=== PATIENT | female | born 1965 | race African-American/Black ===

== ENCOUNTER 2019-06-01 15:34 | Inpatient (IN) ==
--- NOTE | 2019-06-01 16:09 | Diag Imaging Result Doc PS360 ---
EXAM: CHEST-2 VIEWS HISTORY: cough with 91%sat TECHNIQUE: Two views COMPARISON: 05/07/2019 FINDINGS: The lungs are well expanded. The heart is not enlarged. The vessels are not distended. There are small basilar infiltrates. No pleural effusions. IMPRESSION: Basilar infiltrates. Electronically signed by Bryon Howard 06/01/2019 4:06 PM
[2019-06-01 16:11] LABS: INFLUENZA A POSITIVE (NEGATIVE); INFLUENZA B NEGATIVE (NEGATIVE)
[2019-06-01] MEDS ORDERED: TAMIFLU PO ONE (16:22)
[2019-06-01 16:45] LABS: BASO# 0.01 X1000 (0.0-0.2); BASO% 0.2 % (0.0-0.8); HEMATOCRIT 41.1 % (37.0-47.0); HEMOGLOBIN 13.5 g/dL (12.0-16.0); IMM GRAN# 0.03 X1000 (0.0-0.04); IMM GRAN% 0.5 % (0.0-0.5); LYMPH# 0.45 X1000 (1.2-3.4); LYMPH% 7.1 % (20.5-51.1); MCH 30.3 PG (27-31); MCHC 32.8 g/dL (33-37); MCV 92.4 FL (81-99); MONO# 0.89 X1000 (0.11-0.59); MONO% 14.1 % (1.7-9.3); MPV 11.4 FL (7.4-10.4); NEUT# 4.92 X1000 (1.4-6.5); NEUT% 78.1 % (42.2-75.2); PLT 162 X1000 (130-400); RBC 4.45 XMIL (4.2-5.4); RDW 13.5 % (11.5-14.5)
--- NOTE | 2019-06-01 16:59 | PROVIDER DOCUMENTATION ---
This chart was entered by Anne-Marie Fragoso Scribe, acting as scribe for Rivera Salinas MD. HPI-General Adult - General Chief Complaint: Flu Symptoms Stated Complaint: COUGH / FEVER Time Seen by Provider: 06/01/19 16:14 Source: patient Allergies/Adverse Reactions: Patient Allergies Allergy/AdvReac Type Severity Reaction Status Date / Time No Known Allergies Allergy Verified 06/01/19 16:08 Home Medications: Home Medication List Medication Instructions Recorded Confirmed Last Taken Type Divalproex E.r. [Depakote ER] 1,750 mg PO QHS #0 tablet 05/11/17 06/01/19 Unknown Rx Docusate Sodium [Colace] 100 mg PO BID capsule 05/11/17 06/01/19 Unknown Rx Melatonin 10 mg PO QHS tablet 05/11/17 06/01/19 Unknown Rx Trazodone [Desyrel] 100 mg PO QHS tablet 05/11/17 06/01/19 Unknown Rx Calcium Carbonate [Caltrate 600] 600 mg PO DAILY #30 tab 08/28/17 06/01/19 Unknown Rx Hydrochlorothiazide 12.5 mg PO DAILY #30 tab 08/28/17 06/01/19 Unknown Rx LISINOpril [Prinivil] 20 mg PO DAILY #30 tab 08/28/17 06/01/19 Unknown Rx Ergocalciferol (Vitamin D2) 50,000 unit PO Q30D #3 cap 09/11/17 06/01/19 Unknown Rx [Vitamin D] Prazosin [Minipress] 6 mg PO QHS capsule 09/11/17 06/01/19 Unknown Rx Sertraline [Zoloft] 150 mg PO QAM tablet 09/11/17 06/01/19 Unknown Rx Albuterol Sulfate Inhaler 2 puff INH DAILY 06/01/19 06/01/19 Unknown History [Ventolin Hfa] Folic Acid 0.4 mg PO DAILY 06/01/19 06/01/19 Unknown History Gentamicin 0.3% Oph Drops 2 drp .SEE ORDER DAILY 06/01/19 06/01/19 Unknown History Oseltamivir [Tamiflu] 75 mg PO BID #10 cap 06/01/19 Unknown Rx Paliperidone Palmitate [Invega 234 mg IM DIRECTED 06/01/19 06/01/19 Unknown History Sustenna] - History of Present Illness -Gen Adult Nature of Presenting Problems: 53 y/o female presents to ED with headache, cough, nasal drainage, body aches, and fever onset 3 days ago. Pt is alert and oriented. Location of Pain/Injury: reports: generalized Pain Radiation: reports: no radiation Quality of Pain: reports: aching Severity: reports: mild Onset/Duration: reports: 3 days ago Timing: reports: still present Context/Activities at Onset: reports: none Modifying Factors: improves with: nothing Associated Symptoms: reports: cough, fever/chills, headaches, sinus congestion/drainage, other (body aches) Similar Symptoms Previously?: No Recently seen or treated by another doctor?: No Review of Systems - Adult - REVIEW OF SYSTEMS - ADULT Constitutional: reports: fever. denies: chills Eyes: reports: no symptoms reported Ears, Nose, Mouth & Throat: reports: sinus problem. denies: epistaxis Cardiovascular: denies: chest pain, palpitations Respiratory: reports: cough. denies: shortness of breath Gastrointestinal: reports: no symptoms reported Genitourinary: reports: no symptoms reported Musculoskeletal: reports: other (body aches). denies: back pain, joint pain Integumentary: reports: no symptoms reported Neurological: reports: headache/migraines. denies: dizziness/vertigo, seizure Psychiatric: reports: no symptoms reported Endocrine: reports: no symptoms reported Hematologic/Lymphatic: reports: no symptoms reported Allergic/Immunologic: reports: no symptoms reported All Other Systems: Reviewed and Negative Past History - Adult - PAST MEDICAL HISTORY-ADULT Review of Records: reports: Old Records Reviewed, Nursing Assessment Review, Medications Reviewed Major Childhood Illnesses: reports: denies history Cardiovascular: reports: HTN Respiratory: reports: denies history Gastrointestinal: reports: denies history Obstetrical/Gynecological: reports: denies history Genitourinary: reports: denies history Musculoskeletal: reports: denies history Neurological: reports: denies history Psychiatric: reports: anxiety, depression, suicide attempt, schizophrenia Endocrine/Immune: reports: denies history Other Conditions: reports: denies history - PRIOR SURGERIES/PROCEDURES Surgical/Procedure History: reports: BTL - IMMUNIZATION STATUS Childhood Immunizations: See Nurse Assessment Flu Vaccine: See Nurse Assessment - FAMILY HISTORY Family History: reviewed, not pertinent - SOCIAL HISTORY Smoking: quit greater than 1 year Substance Use: none/never Alcohol Use Frequency: never Living Situation: family Physical Exam-General - PHYSICAL EXAM-ADULT Initial Vital Signs Reviewed: Yes - CONSTITUTIONAL General Appearance: appears well, alert, no apparent distress - EYES Eyes: PERRL/EOMI, pink conjunctivae - HEAD, EARS, NOSE, MOUTH & THROAT HENMT: normocephalic/atraumatic, moist mucous membranes, normal ENT inspection - NECK Neck: non-tender, full range of motion - RESPIRATORY Respiratory: chest non-tender, lungs clear, normal breath sounds - CARDIOVASCULAR Cardiovascular: normal peripheral pulses, regular rate, rhythm - GASTROINTESTINAL (ABDOMEN) Abdominal Exam: normal bowel sounds, non tender, soft - MUSCULOSKELETAL Back Exam: normal inspection, no CVA tenderness, no vertebral tenderness Extremity: normal range of motion, non-tender - SKIN Integumentary: normal color, warm/dry - NEUROLOGIC Neurologic: grossly normal - PSYCHIATRIC Psych/Mental Status: normal mood/affect, normal thought content, normal thought process, oriented x 3 Progress - PLAN OF CARE/RESULTS Progress/Plan/Lab Results: Vital Signs - 8 hr 06/01/19 15:39 Temperature 99.9 F H Pulse Rate 121 H Respiratory Rate 18 Blood Pressure 138/80 O2 Sat by Pulse Oximetry 91 L Laboratory Results - last 24 hr 06/01/19 06/01/19 15:38 15:38 Influenza A (Rapid) POSITIVE A Influenza B (Rapid) NEGATIVE Group A Strep Rapid NEGATIVE Orders Category Date Time Status CHEST-2 VIEWS [RAD] Stat Exams 06/01/19 15:[address] Stat Lab 06/01/19 15:[address] Stat Lab 06/01/19 15:38 Completed Laboratory Tests 06/01/19 06/01/19 06/01/19 15:38 15:38 16:37 WBC RBC Hgb Hct MCV MCH MCHC RDW Std Deviation Plt Count MPV Immature Gran % (Auto) Neut % (Auto) Lymph % (Auto) Jones % (Auto) Eos % (Auto) Baso % (Auto) Immature Gran # (Auto) Neut # (Auto) Lymph # (Auto) Jones # (Auto) Eos # (Auto) Baso # (Auto) Sodium 138 Potassium 3.3 L Chloride 97 L Carbon Dioxide 28 Anion Gap 14 BUN 10 Creatinine 0.7 Estimated GFR/1.73 m2 > 60 BUN/Creatinine Ratio 14 Glucose 103 Calculated Osmolality 275 Calcium 9.2 Total Bilirubin 0.40 AST 63 H ALT 46 H Alkaline Phosphatase 51 Total Protein 7.5 Albumin 4.2 Globulin 3.0 Albumin/Globulin Ratio 1.0 Influenza A (Rapid) POSITIVE A Influenza B (Rapid) NEGATIVE Group A Strep Rapid NEGATIVE 06/01/19 16:37 WBC 6.30 RBC 4.45 Hgb 13.5 Hct 41.1 MCV 92.4 MCH 30.3 MCHC 32.8 L RDW Std Deviation 13.5 Plt Count 162 MPV 11.4 H Immature Gran % (Auto) 0.5 Neut % (Auto) 78.1 H Lymph % (Auto) 7.1 L Jones % (Auto) 14.1 H Eos % (Auto) 0.0 Baso % (Auto) 0.2 Immature Gran # (Auto) 0.03 Neut # (Auto) 4.92 Lymph # (Auto) 0.45 L Jones # (Auto) 0.89 H Eos # (Auto) 0.00 Baso # (Auto) 0.01 Sodium Potassium Chloride Carbon Dioxide Anion Gap BUN Creatinine Estimated GFR/1.73 m2 BUN/Creatinine Ratio Glucose Calculated Osmolality Calcium Total Bilirubin AST ALT Alkaline Phosphatase Total Protein Albumin Globulin Albumin/Globulin Ratio Influenza A (Rapid) Influenza B (Rapid) Group A Strep Rapid Result Diagrams: 06/01/19 16:37 06/01/19 16:37 - XRAY 1 XRAY Study: Chest Impression: See EMR Report ([facility] - [address] [place] [address], [address], [place] [id number] [place] [address] - [address] [place] [address] Department of Imaging Patient: ANTON VIRK Date: 06/01/19MR#: [id number] : 1965ADM Status: PRE ERAcct#: [id number] Age/Sex: 53/FRoom/Bed: Loc: P.ED Ordering Physician: Rivera Salinas MD Family Physician: TYESHA CRISTOBAL Reason for Procedure: cough with 91%sat ___ Signed EXAM: CHEST-2 VIEWS HISTORY: cough with 91%sat TECHNIQUE: Two views COMPARISON: 05/07/2019 FINDINGS: The lungs are well expanded. The heart is not enlarged. The vessels are not distended. There are small basilar infiltrates. No pleural effusions. IMPRESSION: Basilar infil trates. Electronically signed by Bryon Howard 06/01/2019 4:06 PM 06/01/19 1606 Interpreting Physician: Bryon Howard MD Dictated Date/Time: 06/01/19 1606 cc: Rivera Salinas MD; Tyesha Cristobal) Departure - Departure Date of Disposition Decision: 06/01/19 Time of Disposition Decision: 16:27 DIAGNOSIS: Influenza A Disposition: HOME 01 Certified Medical Emergency: Emergent Condition: Stable Additional Instructions: ED Follow Up Instructions: You have been treated by a care provider in the Emergency Department. These inst ructions are being provided to you so you can have an understanding of how to care for yourself upon discharge. Upon discharge from the Emergency Department, you are responsible for making arrangements for follow-up care by a physician of your choice. Take all prescribed medications as directed. Return to the Emergency Department immediately for any new or worsening symptoms. You may call the Physician Referral phone number at [phone] to obtain a list of Physicians who are taking new patients. Prescriptions: Oseltamivir [Tamiflu] 75 mg PO BID #10 cap Prescription Printed Referrals and Follow-Ups: Tyesha Cristobal CRNP [Primary Care Provider] - Discharge Education: Influenza, Adult, [id number] - Critical Care Note This patient required my direct & personal management of CC.: No Attestation - Physician/ INES Attestation Patient care was provided by Advanced Practice Provider:: No The physician spent face to face time with patient:: Yes Advanced Practice Provider documentation review:: Supervising physician onsite and consulted in the evaluation and care of this patient. The physician did have a face to face encounter with the patient. This chart was documented by the indicated scribe, (Anne-Marie Fragoso, Bekah) and accurately reflects the services I performed and decisions made by me, Rivera Salinas MD, as attested by the provider's signature.
[2019-06-01 17:03] LABS: AGAP 14; ALBUMIN 4.2 g/dL (3.5-5.0); ALKALINE PHOSPHATASE 51 U/L (32-104); BUN 10 mg/dL (8-22); CALCIUM 9.2 mg/dL (8.8-10.2); CHLORIDE 97 mmol/L (98-107); COSMO 275; CREATININE 0.7 mg/dL (0.5-0.9); ESTIMATED GFR > 60; GLUCOSE 103 mg/dL (70-104); GOT 63 U/L (10-30); GPT 46 U/L (10-36); POTASSIUM 3.3 mmol/L (3.5-5.1); SODIUM 138 mmol/L (136-145); TCO2 28 mmol/L (25-35); TOTAL PROTEIN 7.5 g/dL (6.3-8.3)
[2019-06-01 18:16] LABS: BE 5.4 mmoll (-3.0-3.0); BLOOD TYPE ARTERIAL; HCO3-(ACT) 28.5 mmoll (20.0-26.0); METHB 1.4 % (0.0-1.5); O2(CT) 15.6 mL/dL (15.0-23.0); PCO2(98.6) 42 mmHg (35-45); SAMPLE BLOOD; SAO2 80.8 % (95.0-100.0); THB 14.5 g/dL (11.5-17.4); pH(98.6) 7.46 (7.35-7.45)
[2019-06-01 18:18] LABS: ALLEN TEST NO; MODALITY ROOM AIR
[2019-06-01 18:19] LABS: O2HB 76.6 % (95.0-99.0); PO2(98.6) 41 mmHg (60-100)
[2019-06-01] MEDS: DUONEB (A & A) INH SCH ×2 (20:30→23:30)
[2019-06-02] MEDS: DUONEB (A & A) INH SCH ×5 (07:53→23:19)
[2019-06-02 08:12] LABS: INR 0.98; PROTIME 13.5 Seconds (11.0-16.0)
[2019-06-02 08:13] LABS: PTT 33.7 Seconds (22.3-41.8)
[2019-06-02 08:33] LABS: CK INDEX 0.1 (0.0-2.5)
[2019-06-02] MEDS ORDERED: ZOFRAN IV PRN (16:17)
[2019-06-02] MEDS: ROCEPHIN 1 GM in NS 50 ML IV SCH (17:17)
[2019-06-02] MEDS: HYDROCHLOROTHIAZIDE PO SCH (17:18)
[2019-06-02] MEDS: ZOLOFT PO SCH (17:18)
[2019-06-02] MEDS: ZITHROMAX PO SCH (17:18)
[2019-06-02] MEDS: COLACE PO SCH (21:25)
[2019-06-02] MEDS: MELATONIN PO SCH (21:26)
[2019-06-02] MEDS: DESYREL PO SCH (21:26)
[2019-06-02] MEDS: DEPAKOTE ER PO SCH (21:26)
[2019-06-02] MEDS: TAMIFLU PO SCH (21:26)
[2019-06-02] MEDS: MINIPRESS PO SCH (21:26)
--- NOTE | 2019-06-02 21:28 | HISTORY AND PHYSICAL ---
CHIEF COMPLAINT: Cough, fever. HISTORY OF PRESENT ILLNESS: Patient is a 53-year-old female who presented to the hospital with fever, cough, congestion for 3 days, increased headache, nasal congestion, body aches, subsequently diagnosed with the flu and bibasilar pneumonia. ALLERGIES: No known drug allergies. MEDICATIONS: Depakote, Colace, melatonin, Desyrel, lisinopril 20, Zoloft 150, and I believe she currently is on Tamiflu. REVIEW OF SYSTEMS: Difficult to obtain. Patient complains of sinus congestion, cough, fevers, chills, headaches, muscle aches, fatigue. Denies GI/ issues. PAST MEDICAL HISTORY: Significant for schizophrenia, depression, anxiety, hypertension. SURGICAL HISTORY: Positive for BTL. SOCIAL HISTORY: She lives in a [facility]. She did stop smoking approximately a year ago. Does not use illicit substances. PHYSICAL EXAM: VITAL SIGNS: Temperature 98 degrees, pulse 120 initially currently 100, respiratory rate 18, BP 138/80, saturation 91% on 2 L. GENERAL: Patient is awake, pleasant. She is in no current respiratory distress. HEENT: Normocephalic. NECK: Supple. CARDIOVASCULAR: Regular rate. CHEST: Decreased breath sounds bilaterally, otherwise appears clear. ABDOMEN: Soft, nondistended. EXTREMITIES: Moves all extremities. NEUROLOGIC: No changes. ASSESSMENT: 1. Acute hypoxic respiratory failure 2. Influenza type A 3. Hyponatremia 4. Bibasilar pneumonia 5. Schizophrenia. PLAN: We are going to admit patient the hospital, antibiotics, breathing treatments, oxygen and will follow. cc: Adalberto Pena MD
[2019-06-03 05:35] LABS: HEMATOCRIT 41.6 % (37.0-47.0); HEMOGLOBIN 13.6 g/dL (12.0-16.0); MCH 30.3 PG (27-31); MCHC 32.7 g/dL (33-37); MCV 92.7 FL (81-99); MPV 11.7 FL (7.4-10.4); RBC 4.49 XMIL (4.2-5.4); RDW 13.3 % (11.5-14.5); WBC 3.08 X1000 (4.8-10.8)
[2019-06-03 05:47] LABS: AGAP 13; ALBUMIN 3.6 g/dL (3.5-5.0); ALKALINE PHOSPHATASE 46 U/L (32-104); BUN 10 mg/dL (8-22); CALCIUM 8.5 mg/dL (8.8-10.2); CHLORIDE 94 mmol/L (98-107); COSMO 273; CREATININE 0.6 mg/dL (0.5-0.9); ESTIMATED GFR > 60; GLUCOSE 139 mg/dL (70-104); GOT 96 U/L (10-30); GPT 60 U/L (10-36); MAGNESIUM 2.1 mg/dL (1.5-2.7); POTASSIUM 3.3 mmol/L (3.5-5.1); SODIUM 136 mmol/L (136-145); TCO2 29 mmol/L (25-35); TOTAL PROTEIN 7.1 g/dL (6.3-8.3)
[2019-06-03] MEDS: TYLENOL PO PRN (06:40)
[2019-06-03] MEDS: DUONEB (A & A) INH SCH ×5 (08:00→23:23)
[2019-06-03] MEDS: CALTRATE 600 PO SCH (08:45)
[2019-06-03] MEDS: ZITHROMAX PO SCH (08:46)
[2019-06-03] MEDS: TAMIFLU PO SCH ×2 (08:46→21:08)
[2019-06-03] MEDS: HYDROCHLOROTHIAZIDE PO SCH (08:46)
[2019-06-03] MEDS: FOLIC ACID PO SCH (08:46)
[2019-06-03] MEDS: PRINIVIL PO SCH (08:46)
[2019-06-03] MEDS: ZOLOFT PO SCH (08:46)
[2019-06-03] MEDS: COLACE PO SCH ×2 (08:47→21:08)
[2019-06-03] MEDS: ROCEPHIN 1 GM in NS 50 ML IV SCH (16:50)
[2019-06-03] MEDS: MINIPRESS PO SCH (21:08)
[2019-06-03] MEDS: DEPAKOTE ER PO SCH (21:08)
[2019-06-03] MEDS: DESYREL PO SCH (21:08)
[2019-06-03] MEDS: MELATONIN PO SCH (21:09)
--- NOTE | 2019-06-03 21:29 | PROGRESS NOTE ---
DATE: 06/03/2019 SUBJECTIVE: Patient notes she is still having cough congestion still, increased work of breathing and shortness of breath. OBJECTIVE: Vital Signs: T-max 101.7 degrees, pulse 101, respiratory 18, BP 104/61. General: Patient is pleasant. She is in no distress. HEENT: Normocephalic. Neck: Supple. Cardiovascular: Regular rate. Chest: Clear. Abdomen: Soft. Extremities: Moves all extremities. ASSESSMENT: 1. Acute hypoxic respiratory failure. 2. Influenza type A. 3. Hyponatremia. 4. Bibasilar pneumonia. 5. Schizophrenia. 6. Sepsis secondary to pneumonia. 7. Hypokalemia. 8. Transaminitis. PLAN: We are going to continue patient in hospital. Continue Rocephin, azithromycin, Tamiflu and oxygen breathing treatments and will follow. cc: Adalberto Pena MD
[2019-06-04] MEDS: DUONEB (A & A) INH SCH ×5 (07:38→23:19)
[2019-06-04] MEDS ORDERED: KLOR-CON PO ONE (08:25)
[2019-06-04] MEDS: PRINIVIL PO SCH (08:31)
[2019-06-04] MEDS: ZOLOFT PO SCH (08:31)
[2019-06-04] MEDS: HYDROCHLOROTHIAZIDE PO SCH (08:31)
[2019-06-04] MEDS: CALTRATE 600 PO SCH (08:31)
[2019-06-04] MEDS: TAMIFLU PO SCH ×2 (08:31→21:02)
[2019-06-04] MEDS: ZITHROMAX PO SCH (08:31)
[2019-06-04] MEDS: FOLIC ACID PO SCH (08:31)
[2019-06-04] MEDS: COLACE PO SCH ×2 (08:32→21:02)
--- NOTE | 2019-06-04 09:44 | Diag Imaging Result Doc PS360 ---
EXAM: CHEST-PORTABLE - 06/04/2019 HISTORY: dyspnea TECHNIQUE: Portable chest COMPARISON: 06/01/2019 FINDINGS: Heart size is normal. There are ill-defined perihilar/infrahilar infiltrates, most prominent on the right, which appear overall mildly increased. There is no substantial pleural effusion or pneumothorax identified. IMPRESSION: Ill-defined perihilar/perihilar infiltrates, which appear overall mildly increased compared to prior. Electronically signed by Campos Bee 06/04/2019 9:41 AM
[2019-06-04] MEDS: ROCEPHIN 1 GM in NS 50 ML IV SCH (16:01)
[2019-06-04] MEDS: MAXIPIME 1 GM in NS 50 ML IV SCH (18:45)
--- NOTE | 2019-06-04 20:59 | PROGRESS NOTE ---
DATE: 06/04/2019 SUBJECTIVE: The patient this morning is somnolent. PHYSICAL EXAMINATION: Vital signs: Temperature 98, pulse 99, respiratory rate 18, BP 111/62, saturating 98% on 4 L. General: Currently, patient is asleep with her oxygen in the floor. HEENT: Normocephalic. Neck: Supple. Cardiovascular: Regular rate. Chest: Decreased but equal. No current crackles. Abdomen: Soft. Extremities: No edema. Neurologic: No focal changes. She currently is sleeping, but arousable. ASSESSMENT: 1. Acute hypoxic respiratory failure. We are going to get respiratory to recheck her O2 saturation is her oxygen is currently in the floor and she was previously on 4 L. 2. Sepsis secondary to influenza and pneumonia. 3. Schizophrenia. 4. Positive for pneumonia. 5. Fever, resolved. PLAN: We are going to replace her potassium, continue Tamiflu, azithromycin, Rocephin. We are going to move her to a room closer to the desk so that she can be watched more closely and we will follow. cc: Adalberto Pena MD
[2019-06-04] MEDS: MELATONIN PO SCH (21:01)
[2019-06-04] MEDS: MINIPRESS PO SCH (21:01)
[2019-06-04] MEDS: DOXYCYCLINE PO SCH (21:02)
[2019-06-04] MEDS: DESYREL PO SCH (21:02)
[2019-06-04] MEDS: DEPAKOTE ER PO SCH (21:02)
[2019-06-05] MEDS: MAXIPIME 1 GM in NS 50 ML IV SCH ×2 (05:48→18:03)
[2019-06-05 06:48] LABS: HEMATOCRIT 41.9 % (37.0-47.0); HEMOGLOBIN 13.1 g/dL (12.0-16.0); MCH 29.5 PG (27-31); MCHC 31.3 g/dL (33-37); MCV 94.4 FL (81-99); MPV 11.7 FL (7.4-10.4); RBC 4.44 XMIL (4.2-5.4); RDW 13.5 % (11.5-14.5); WBC 3.36 X1000 (4.8-10.8)
[2019-06-05] MEDS: DUONEB (A & A) INH SCH ×4 (07:12→19:51)
[2019-06-05 07:28] LABS: AGAP 12; ALBUMIN 3.3 g/dL (3.5-5.0); ALKALINE PHOSPHATASE 43 U/L (32-104); BUN 17 mg/dL (8-22); CALCIUM 8.6 mg/dL (8.8-10.2); CHLORIDE 95 mmol/L (98-107); COSMO 280; CREATININE 0.7 mg/dL (0.5-0.9); ESTIMATED GFR > 60; GLUCOSE 115 mg/dL (70-104); GOT 59 U/L (10-30); GPT 54 U/L (10-36); MAGNESIUM 2.4 mg/dL (1.5-2.7); POTASSIUM 3.8 mmol/L (3.5-5.1); SODIUM 139 mmol/L (136-145); TCO2 32 mmol/L (25-35); TOTAL PROTEIN 6.7 g/dL (6.3-8.3)
[2019-06-05] MEDS: COLACE PO SCH ×2 (09:49→22:12)
[2019-06-05] MEDS: CALTRATE 600 PO SCH (09:49)
[2019-06-05] MEDS: DOXYCYCLINE PO SCH ×2 (09:49→22:13)
[2019-06-05] MEDS: ZOLOFT PO SCH (09:50)
[2019-06-05] MEDS: FOLIC ACID PO SCH (09:50)
[2019-06-05] MEDS: PRINIVIL PO SCH (09:50)
[2019-06-05] MEDS: TAMIFLU PO SCH ×2 (09:50→22:14)
[2019-06-05] MEDS: HYDROCHLOROTHIAZIDE PO SCH (09:50)
--- NOTE | 2019-06-05 22:05 | PROGRESS NOTE ---
DATE: 06/05/2019 SUBJECTIVE: Patient lying in the bed. She is currently in minimal distress. She does seem more awake and alert. PHYSICAL EXAMINATION: Temp 99, pulse 93, respiratory 22, BP 160/68, sat 94% on 4 L.General: Patient is an overweight female who currently is in minimal respiratory distress. She is lying in the bed. She is awake and alert. Breathing is much improved. No crackles. No wheezing. Abdomen: Soft, nondistended. Extremities: Moves all extremities. ASSESSMENT: 1. Sepsis secondary to bibasilar pneumonia. 2. Bibasilar pneumonia. 3. Acute hypoxic respiratory failure, currently on oxygen. The patient was not on oxygen previously. 4. Influenza type A. 5. Schizophrenia. PLAN: We will continue patient in the hospital, continue antibiotics although we did change to cefepime and doxycycline as her chest x-ray still has an ill-defined perihilar area. We will continue this today. If it does not improve, we may need to transfer her for pulmonology assistance. cc: Adalberto Pena MD
[2019-06-05] MEDS: MINIPRESS PO SCH (22:11)
[2019-06-05] MEDS: DEPAKOTE ER PO SCH (22:12)
[2019-06-05] MEDS: DESYREL PO SCH (22:13)
[2019-06-05] MEDS: MELATONIN PO SCH (22:14)
[2019-06-06] MEDS: DUONEB (A & A) INH SCH ×6 (00:18→23:46)
[2019-06-06] MEDS: MAXIPIME 1 GM in NS 50 ML IV SCH ×2 (05:18→19:05)
[2019-06-06] MEDS: HYDROCHLOROTHIAZIDE PO SCH (09:44)
[2019-06-06] MEDS: DOXYCYCLINE PO SCH ×2 (09:44→20:22)
[2019-06-06] MEDS: CALTRATE 600 PO SCH (09:44)
[2019-06-06] MEDS: TAMIFLU PO SCH ×2 (09:44→20:24)
[2019-06-06] MEDS: ZOLOFT PO SCH (09:44)
[2019-06-06] MEDS: FOLIC ACID PO SCH (09:45)
[2019-06-06] MEDS: COLACE PO SCH ×2 (09:45→20:22)
[2019-06-06] MEDS: PRINIVIL PO SCH (09:45)
[2019-06-06] MEDS: DESYREL PO SCH (20:22)
[2019-06-06] MEDS: MINIPRESS PO SCH (20:22)
[2019-06-06] MEDS: DEPAKOTE ER PO SCH (20:23)
[2019-06-06] MEDS: MELATONIN PO SCH (20:23)
--- NOTE | 2019-06-06 23:15 | PROGRESS NOTE ---
DATE: 06/06/2019 SUBJECTIVE: Patient without any new complaints. PHYSICAL EXAMINATION: Vital Signs: Temperature 98 degrees, pulse 82, respiratory rate 18, BP 121/79, saturating 94% on 4 L. General: Patient is in no current distress although she is still requiring oxygen. HEENT: Normocephalic. Neck: Supple. Cardiovascular: Regular rate. Chest: Clear. No crackles. Abdomen: Soft. Extremities: Moves all extremities. ASSESSMENT: 1. Bibasilar pneumonia. 2. Schizophrenia. 3. Influenza type A. 4. Sepsis secondary to bibasilar pneumonia. 5. Acute hypoxic respiratory failure. 6. Hypokalemia. PLAN: We have changed to cefepime and doxycycline. We will continue Tamiflu for a total 5 days and we will follow. Hopefully she can wean off oxygen [*] We will continue incentive spirometry. cc: Adalberto Pena MD
[2019-06-07] MEDS: MAXIPIME 1 GM in NS 50 ML IV SCH ×2 (05:19→17:30)
[2019-06-07] MEDS: DUONEB (A & A) INH SCH ×5 (07:53→23:00)
[2019-06-07] MEDS: HYDROCHLOROTHIAZIDE PO SCH (08:34)
[2019-06-07] MEDS: TAMIFLU PO SCH (08:34)
[2019-06-07] MEDS: CALTRATE 600 PO SCH (08:34)
[2019-06-07] MEDS: COLACE PO SCH ×2 (08:34→21:04)
[2019-06-07] MEDS: DOXYCYCLINE PO SCH ×2 (08:35→21:05)
[2019-06-07] MEDS: PRINIVIL PO SCH (08:35)
[2019-06-07] MEDS: FOLIC ACID PO SCH (08:35)
[2019-06-07] MEDS: ZOLOFT PO SCH (08:35)
[2019-06-07] MEDS: MINIPRESS PO SCH (21:03)
[2019-06-07] MEDS: DEPAKOTE ER PO SCH (21:03)
[2019-06-07] MEDS: MELATONIN PO SCH (21:04)
[2019-06-07] MEDS: DESYREL PO SCH (21:04)
--- NOTE | 2019-06-07 22:32 | PROGRESS NOTE ---
DATE: 06/07/2019 SUBJECTIVE: Patient has no complaints. OBJECTIVE: Vital Signs: Reviewed. HEENT: Normocephalic. Neck: Supple. Cardiovascular: Regular rate. Chest: Clear. Abdomen: Soft. Extremities: Moves all extremities. ASSESSMENT: 1. Acute hypoxic respiratory failure. 2. Influenza type A. 3. Bibasilar pneumonia. 4. Sepsis. 5. Schizophrenia. PLAN: We are going to continue patient in the hospital. Continue to wean oxygen as tolerated. Recheck chest x-ray. Continue breathing treatments, and we will follow. cc: Adalberto Pena MD
[2019-06-08] MEDS: MAXIPIME 1 GM in NS 50 ML IV SCH ×2 (05:19→17:18)
[2019-06-08] MEDS: DUONEB (A & A) INH SCH ×4 (08:08→20:42)
[2019-06-08] MEDS ORDERED: VITAMIN D PO SCH (09:00)
[2019-06-08] MEDS: DOXYCYCLINE PO SCH ×2 (09:04→20:25)
[2019-06-08] MEDS: FOLIC ACID PO SCH (09:04)
[2019-06-08] MEDS: COLACE PO SCH ×2 (09:04→20:25)
[2019-06-08] MEDS: HYDROCHLOROTHIAZIDE PO SCH (09:04)
[2019-06-08] MEDS: CALTRATE 600 PO SCH (09:05)
[2019-06-08] MEDS: PRINIVIL PO SCH (09:05)
[2019-06-08] MEDS: ZOLOFT PO SCH (09:05)
[2019-06-08] MEDS: DESYREL PO SCH (20:25)
[2019-06-08] MEDS: DEPAKOTE ER PO SCH (20:25)
[2019-06-08] MEDS: MELATONIN PO SCH (20:26)
[2019-06-08] MEDS: MINIPRESS PO SCH (20:26)
[2019-06-08] MEDS: TYLENOL PO PRN (21:39)
[2019-06-09] MEDS: DUONEB (A & A) INH SCH ×6 (00:12→23:07)
--- NOTE | 2019-06-09 01:52 | PROGRESS NOTE ---
DATE: 06/08/2019 SUBJECTIVE: Patient with no new complaints. Notes that she is starting to breathe easier. PHYSICAL EXAMINATION: Vital Signs: Reviewed. She is still requiring 1 L of oxygen. HEENT: Normocephalic. Neck: Supple. Cardiovascular: Regular rate. Chest: Clear, nonlabored. Abdomen: Soft, nondistended. Extremities: Moves all extremities. ASSESSMENT: 1. Acute respiratory failure. 2. Bibasilar pneumonia. 3. Schizophrenia. 4. Sepsis secondary to pneumonia. 5. Hypokalemia. PLAN: Overall, the patient has continued to improve. We are going to continue antibiotics and we will follow. We will continue to try to wean her off oxygen as she cannot go back to her half-way until she is off oxygen. cc: Adalberto Pena MD
[2019-06-09] MEDS: MAXIPIME 1 GM in NS 50 ML IV SCH ×2 (05:17→17:58)
[2019-06-09] MEDS: ZOLOFT PO SCH (09:39)
[2019-06-09] MEDS: COLACE PO SCH ×2 (09:40→20:14)
[2019-06-09] MEDS: FOLIC ACID PO SCH (09:40)
[2019-06-09] MEDS: PRINIVIL PO SCH (09:40)
[2019-06-09] MEDS: DOXYCYCLINE PO SCH ×2 (09:40→20:14)
[2019-06-09] MEDS: HYDROCHLOROTHIAZIDE PO SCH (09:40)
[2019-06-09] MEDS: CALTRATE 600 PO SCH (09:40)
[2019-06-09 09:43] LABS: BE 10.2 mmoll (-3.0-3.0); BLOOD TYPE ARTERIAL; HCO3-(ACT) 32.7 mmoll (20.0-26.0); O2(CT) 18.7 mL/dL (15.0-23.0); O2HB 91.7 % (95.0-99.0); PCO2(98.6) 46 mmHg (35-45); PO2(98.6) 65 mmHg (60-100); SAMPLE BLOOD; THB 14.5 g/dL (11.5-17.4); pH(98.6) 7.49 (7.35-7.45)
[2019-06-09 09:46] LABS: ALLEN TEST NO; MODALITY CANNULA
--- NOTE | 2019-06-09 10:49 | PROGRESS NOTE ---
DATE: 06/09/2019 SUBJECTIVE: The patient is quite somnolent this morning. She is a little more sleepy than she has been in the past. She did require a slight increase in her oxygen last night. PHYSICAL EXAMINATION: Vital Signs: Temperature 98, pulse 18, respiratory rate 22, BP 109/59, sat 90 on 2 L, currently 96 on 3 L, although oddly, only 88% on room air. General: She will arouse, but quickly falls back asleep. HEENT: Normocephalic. Neck: Supple. Cardiovascular: Regular rate. Chest: Decreased breath sounds, but equal. No crackles. No wheezing. No real rhonchi. Abdomen: Soft, obese, nondistended. Extremities: Moves all extremities. ASSESSMENT: Somnolence. Her ABG is actually normal. She does take Desyrel at night. We are going to hold this, as well as her melatonin. We are going to attempt to get her moving this morning to see if that will help her stay arousable. Continue to work on trying to wean her oxygen. Will recheck her labs and a chest x-ray this morning. cc: Adalberto Pena MD
[2019-06-09 10:53] LABS: HEMOGLOBIN 13.4 g/dL (12.0-16.0); MCH 29.6 PG (27-31); MCHC 31.2 g/dL (33-37); MCV 94.9 FL (81-99); MPV 11.1 FL (7.4-10.4); RBC 4.53 XMIL (4.2-5.4); RDW 13.4 % (11.5-14.5); WBC 4.36 X1000 (4.8-10.8)
[2019-06-09 11:08] LABS: AGAP 13; ALBUMIN 3.7 g/dL (3.5-5.0); ALKALINE PHOSPHATASE 46 U/L (32-104); BUN 13 mg/dL (8-22); CALCIUM 9.2 mg/dL (8.8-10.2); CHLORIDE 99 mmol/L (98-107); COSMO 289; CREATININE 0.6 mg/dL (0.5-0.9); ESTIMATED GFR > 60; GLUCOSE 170 mg/dL (70-104); GOT 20 U/L (10-30); GPT 26 U/L (10-36); POTASSIUM 3.8 mmol/L (3.5-5.1); SODIUM 143 mmol/L (136-145); TCO2 31 mmol/L (25-35); TOTAL PROTEIN 7.4 g/dL (6.3-8.3)
--- NOTE | 2019-06-09 12:33 | Diag Imaging Result Doc PS360 ---
EXAM: CHEST-PORTABLE - 06/09/2019 HISTORY: dyspnea TECHNIQUE: Portable chest COMPARISON: 06/04/2019 FINDINGS: Heart size is normal. There are perihilar infiltrates, most prominent on the right. These have overall decreased compared to prior. There is no substantial pleural effusion or pneumothorax identified. IMPRESSION: Perihilar infiltrates, most prominent on the right, which are overall decreased compared to prior. Electronically signed by [facility] [employer] 06/09/2019 12:30 PM
[2019-06-09] MEDS: DEPAKOTE ER PO SCH (20:13)
[2019-06-09] MEDS: MINIPRESS PO SCH (20:13)
[2019-06-10] MEDS: MAXIPIME 1 GM in NS 50 ML IV SCH ×2 (05:14→18:25)
[2019-06-10] MEDS: DUONEB (A & A) INH SCH ×5 (07:58→22:29)
[2019-06-10] MEDS: FOLIC ACID PO SCH (09:14)
[2019-06-10] MEDS: COLACE PO SCH ×2 (09:14→20:08)
[2019-06-10] MEDS: HYDROCHLOROTHIAZIDE PO SCH (09:15)
[2019-06-10] MEDS: PRINIVIL PO SCH (09:15)
[2019-06-10] MEDS: CALTRATE 600 PO SCH (09:15)
[2019-06-10] MEDS: DOXYCYCLINE PO SCH ×2 (09:15→20:08)
[2019-06-10] MEDS: TYLENOL PO PRN (17:00)
--- NOTE | 2019-06-10 18:24 | PROGRESS NOTE ---
DATE: 06/10/2019 SUBJECTIVE: The patient reports feeling fine. She is awake, alert and apparently is at her baseline according to the nursing staff. OBJECTIVE: Vital Signs: Temperature 98.1 degrees, heart rate 72, respiratory rate 18, blood pressure 113/63, O2 saturation 99% on room air. General Examination: This is a 53-year-old female lying in bed, in no acute distress. Cardiovascular: S1, S2 heard. No murmurs, gallops, or rubs. Regular rate and rhythm. Respiratory: Clear bilaterally to auscultation. No work of breathing. Not using accessory muscles. Abdomen: Soft, nontender to palpation. Bowel sounds present. No organomegaly. Extremities: No clubbing, cyanosis, or edema. Peripheral pulses present in both legs. Neurological: Patient is awake, follows commands. Oriented. Moves 4 extremities. LABORATORY DATA: There is no labs from today. From yesterday, everything has been completely normal. ASSESSMENT AND PLAN: 1. Acute respiratory failure secondary to bibasilar pneumonia. Patient seen is breathing okay. Not requiring any oxygen supplementation. So, at this point, we will continue with current antibiotic management. 2. Sepsis secondary to pneumonia. That condition was resolved. Patient is not tachycardic. Not spiking any fever and her white cell count is normal. 3. Hypokalemia, resolved. DISPOSITION: The patient is ready to be discharged back to [facility]. Will we have actually put orders for discharge, but we were informed that this patient has to be kept in the hospital because there is no staff from [facility] to pick this patient up. We will keep her until tomorrow morning, but all orders has been taking care of. We just need to put the discharge order for her for tomorrow. cc: Jeff Samuels MD MTDD
[2019-06-10] MEDS: DEPAKOTE ER PO SCH (20:07)
[2019-06-10] MEDS: MINIPRESS PO SCH (20:07)
[2019-06-11] MEDS: MAXIPIME 1 GM in NS 50 ML IV SCH (06:12)
[2019-06-11 07:45] VITALS: BP 125/64
[2019-06-11] MEDS: DUONEB (A & A) INH SCH (07:51)
[2019-06-11] MEDS: CALTRATE 600 PO SCH (10:18)
[2019-06-11] MEDS: FOLIC ACID PO SCH (10:18)
[2019-06-11] MEDS: DOXYCYCLINE PO SCH (10:18)
[2019-06-11] MEDS: PRINIVIL PO SCH (10:18)
[2019-06-11] MEDS: COLACE PO SCH (10:18)
[2019-06-11] MEDS: HYDROCHLOROTHIAZIDE PO SCH (10:18)
--- NOTE | 2019-06-12 09:36 | DISCHARGE SUMMARY ---
ADMISSION DATE: 06/03/2019 DISCHARGE DATE: 06/11/2019 ADDENDUM: Patient seen and examined by myself. Full note dictated and discussed with nurse practitioner. Patient presented to the hospital with an influenza infection, subsequently diagnosed with sepsis secondary to influenza and pneumonia. Was placed on antibiotics and Tamiflu. She continued to improve but continued to require oxygen. Unfortunately, she lives in a [facility] and therefore cannot have oxygen. She was watched in the hospital for the next several days. Thankfully, was able to wean off oxygen totally for 24 hours prior to discharge. cc: Adalberto Pena MD
--- NOTE | 2019-06-12 22:11 | DISCHARGE SUMMARY ---
ADMISSION DATE: 06/03/2019 DISCHARGE DATE: 06/11/2019 DIAGNOSES: 1. Acute hypoxemic respiratory failure, resolved. 2. Influenza type A. 3. Hyponatremia, resolved. 4. Bibasilar pneumonia. 5. Schizophrenia. 6. Sepsis secondary to pneumonia, resolved. DIAGNOSTICS: 1. 06/01/2019 chest x-ray revealed basilar infiltrates. 2. 06/04/2019 chest x-ray, ill-defined perihilar infiltrates which appear overall mildly increased compared to prior. 3. 06/09/2019, chest x-ray, perihilar infiltrates most prominent on the right, which are overall decreased compared to prior. MICROBIOLOGY: Group A strep was not isolated on throat culture. HOSPITAL COURSE: Ms. Lorenzo presented to the emergency room with fever, cough and congestion x3 days. She was found to have influenza a as well as bibasilar pneumonia for which she received Tamiflu and antibiotics coverage of Rocephin and azithromycin initially. This was changed to cefepime and doxycycline. Thankfully, she has improved and is ready for discharge. Ms. Lorenzo required oxygen initially the night of June 08. She was able to maintain O2 saturations 93% to 95% on room air and required no further oxygen. PHYSICAL EXAMINATION: Discharge Vital Signs: Blood pressure is 125/64 with a heart rate of 85, respirations 16, temperature is 98 degrees, room air saturation 95%. Cardiovascular: Regular rate and rhythm. S1, S2 appreciated. No murmurs. Pulmonary: Breath sounds are clear. No increased work of breathing. Chest rises and falls symmetrically with respiration. Gastrointestinal: Abdomen is soft, nontender, nondistended with bowel sounds in all 4 quadrants. Extremities: No clubbing, cyanosis, or edema with peripheral pulses palpable x4 extremities. Neurologic: She is awake, follows commands. DISCHARGE MEDICATIONS: 1. Trazodone 100 mg p.o. at bedtime. 2. Zoloft 150 mg p.o. q.a.m. 3. Minipress 6 mg p.o. at bedtime. 4. Invega 1.5 mL as directed. 5. Melatonin 10 mg at bedtime. 6. Lisinopril 20 mg p.o. daily. 7. Hydrochlorothiazide 12.5 mg p.o. daily. 8. Gentamicin eyedrops as directed. 9. Folic acid p.o. daily. 10. Vitamin D2, 50,000 units p.o. every 30 days. 11. Doxycycline 100 mg p.o. b.i.d. x5 days. 12. Colace 100 mg p.o. b.i.d. 13. Depakote ER 1750 mg at bedtime. 14. Omnicef 300 mg p.o. b.i.d. x5 days. 15. Caltrate 600 mg p.o. daily. 16. Ventolin inhaler 2 puffs p.o. daily FOLLOWUP: 1. Dr. Hoa Cristobal in 1 to 2 weeks. They need to call and schedule an appointment. 2. She and the custodial personnel have been instructed to call to be seen sooner or come to the ER for temperature greater than 101, any syncope, dizziness, chest pain, palpitations, shortness of breath, PND, orthopnea, any nausea, vomiting, diarrhea, constipation, black or bloody vomitus or stools or for any questions or concerns that they may have. 3. She is being discharged home in stable condition with custodial personnel. TIME SPENT: This is a greater than 30 minute discharge. Dictated by MINNA Morgan for Adalberto Pena MD cc: MINNA Morgan MD
[2019-06-13] MEDS ORDERED: INVEGA SUSTENNA IM SCH (09:00)
== END 2019-06-11 10:28 | disposition home or self-care (01) | DRG 871 ==
LOC: P.ED 15:34 → P.EDIPHOLD 15:34 → P.MEDSURG 06-02 08:29 → SUATTDRO 06-03 13:08 → P.MEDSURG 06-04 08:46
PROVIDERS: ATTEND Family Medicine